=== PATIENT | male | born 1975 | race Caucasian/White ===

== ENCOUNTER 2022-02-23 12:22 | Outpatient (CLI) | payer OTHER, SELFPAY ==
[2022-02-23 21:55] LABS: Cholesterol* 207 mg/dL (90-199); HDL Cholesterol* 40 mg/dL (>=40); LDL Cholesterol Calculated 150 mg/dL (<100); Triglycerides* 85 mg/dL (40-149)
== END 2022-02-23 12:23 | disposition home or self-care (01) ==
PROVIDERS: PCP Family Medicine; Visit Provider Emergency Medicine
DX: R73.03 Prediabetes (principal); Z68.38 Body mass index [BMI] 38.0-38.9, adult; I10 Essential (primary) hypertension
CPT/HCPCS: 80061